=== PATIENT | male | born 1965 | race African-American/Black ===

== ENCOUNTER → 2020-06-20 | Outpatient (CLI) | payer BC ==
[~2020-06-20] MED LIST: AMLODIPINE BESY10 MG PO; ATORVASTATIN CA80 MG PO; BENTYL 10 MG CA10 M1 PO; CRESTOR20 MG PO; FLEXERIL PO; GLIMEPIRIDE4 MG PO; GLUCOPHAGE XR750 MG PO; HYDROCHLOROTH12.5 MG PO; HYDROCODON-ACE1 EA11 PO; KLOR-CON 10 ER10 MEQ PO; LISINOPRIL40 MG PO; OMEGA-3 KRILL1 EACH PO; OMEPRAZOLE 20 M20 M1 PO; PREDNISONE 10 M10 M1 PO; PROPRANOLOL 8080 M1 PO; PROTONIX40 M2 PO; PROVIGIL 200 M200 M1 PO; TOPAMAX50 MG PO; TRIAMTERENE-HC1 EAC3 PO
== END ==
LOC: LAB 11:06
PROVIDERS: ATTEND Surgery
DX: Z01.818 Encounter for other preprocedural examination (principal); Z20.828 Contact with and (suspected) exposure to other viral communicable diseases

== ENCOUNTER 2020-06-21 14:02 | Day surgery (SDC) | payer BC ==
[~2020-06-21] VITALS: Ht 160 cm; Wt 131.5 kg
[~2020-06-21 14:02] MED LIST changes: -FLEXERIL PO; -HYDROCODON-ACE1 EA11 PO
[2020-06-21 14:26] VITALS: BP 158/85
[2020-06-21] MEDS ORDERED: HYDROCODON-ACE1 EA11 PO (15:58)
[2020-06-22] MEDS ORDERED: FLEXERIL PO (15:02)
--- NOTE | 2020-06-24 17:06 | PATH ---
[facility] [address] [place] [address] PATHOLOGY RPT PROCEDURE Name: SCOTTIE MUJICA Room #: DEP [facility] M.R.#: [id number] Admission: 06/21/20 Date of : 67 Discharge: 06/21/20 Report #: [id number] Path Case #: [id number] [facility] Accession Number: [id number] . 01 Material submitted: . artery - RIGHT TEMPORAL ARTERY. Modifiers: right, temporal . 01 Clinical history: . TEMPORAL ARTERY OF THE FOREHEAD . 01 Frozen section diagnosis: . . /QMS . 02 Diagnosis: Artery, right temporal artery, biopsy: - Minimal atherosclerotic changes. - Negative for arteritis. - Adjacent tissue showing fragments of skeletal muscle as well as nerve tissue, in addition to adipose tissue. (IUV:shawn; 06/24/2020) QMS 06/24/2020 1456 Local . 02 Electronically signed: . Rebeka Aguillon MD, Pathologist NPI- [id number] . 01 Gross description: . Received in formalin labeled "Scottie Mujica, right temporal artery" is a segment of matos-brown vascular tissue measuring 1.3 cm in length and 0.3 cm in diameter. The specimen is submitted in toto in cassette A1 for temporal artery sectioning. ([facility]; 06/23/2020) [facility] 06/23/2020 1042 Local . 02 Microscopic: . . . 02 Pathologist provided ICD-10: Z03.89 . 02 CPT . 657023 Specimen Comment: A courtesy copy of this report has been sent to [phone] Specimen Comment: [phone], Specimen Comment: Report sent to ,DR PADILLA / DR FARLEY Performed at: [address] [address] PATHOLOGY RPT PROCEDURE Name: SCOTTIE MUJICA Room #: DEP [facility] Prisca#: [id number] Admission: 06/21/20 Date of : 67 Discharge: 06/21/20 Report #: [id number] Path Case #: [id number] [address], [place], [place] [id number] MD Jim Nava MD Phone: [phone] Performed at: [address], [place] [id number] MD Rebeka Aguillon MD Phone: [phone]
--- NOTE | 2020-06-27 16:09 | O ---
[facility] [place] [address] [place] [address] OPERATIVE REPORT Name: RERE MUJICA Room #: DEP [facility]..#: [id number] Admission: 06/21/20 Attend Phys: Triston Encinas MD Discharge: 06/21/20 Date of : 67 Report #: [id number] THIS REPORT FOR: cc: Sidra Stroud MD NO FAMILY PHYSICIAN or PCP Triston Encinas MD ~ CC: HAY Stroud NO PCP Triston Encinas DATE OF SERVICE: 06/21/2020 PATIENT OF: Dr. Triston Encinas, Dr. Hay Neumann. PREOPERATIVE DIAGNOSIS: Possible temporal arteritis. POSTOPERATIVE DIAGNOSIS: Possible temporal arteritis. PROCEDURE: Right temporal artery biopsy. SURGEON: Triston Encinas MD ANESTHESIA: Local. DESCRIPTION OF PROCEDURE: The patient was brought to the operating room and placed on operative table in the supine position. The right temporal area was prepped and draped in a sterile fashion. Skin and subcutaneous tissue were then infiltrated with 0.5% Marcaine and 1% Xylocaine in a 1:1 mixture. A skin incision was performed over the temporal artery using #15 scalpel blade. Hemostasis obtained using electrocautery. Dissection was carried down through subcutaneous tissue to the artery, which was identified, dissected free and tied proximally and distally with a 3-0 silk tie. Specimen was removed and sent to pathology. Subcutaneous tissue was then reapproximated using simple interrupted 3-0 Vicryl suture and the skin then closed with a running 4-0 subcuticular Vicryl stitch. Wound was then dressed with Dermabond and the patient was taken to recovery room in good condition. Estimated blood loss was approximately 10 mL and the patient tolerated procedure well. All sponge, lap and instrument counts correct x 2. <ELECTRONICALLY SIGNED> By: Triston Encinas MD 06/27/20 1609 1647 1716 Triston Encinas MD /nt
== END 2020-06-21 17:00 | disposition home or self-care (01) ==
LOC: OR 14:02 → TBA 14:04 → OR 14:06
PROVIDERS: ATTEND Surgery
DX: Z03.89 Encounter for observation for other suspected diseases and conditions ruled out (principal); M31.6 Other giant cell arteritis; E11.9 Type 2 diabetes mellitus without complications; I10 Essential (primary) hypertension; K21.00 Gastro-esophageal reflux disease with esophagitis, without bleeding; G47.33 Obstructive sleep apnea (adult) (pediatric); E78.2 Mixed hyperlipidemia; M17.0 Bilateral primary osteoarthritis of knee; Z90.49 Acquired absence of other specified parts of digestive tract; Z98.890 Other specified postprocedural states; Z82.49 Family history of ischemic heart disease and other diseases of the circulatory system; Z79.899 Other long term (current) drug therapy; Z79.84 Long term (current) use of oral hypoglycemic drugs; Z83.3 Family history of diabetes mellitus
CPT/HCPCS: 50010; 50101

== ENCOUNTER 2020-06-22 13:56 | Emergency (ER) | payer BC ==
[~2020-06-22] VITALS: Ht 160 cm; Wt 131.5 kg
[~2020-06-22 13:56] MED LIST changes: +HYDROCODON-ACE1 EA11 PO
[2020-06-22 13:57] VITALS: BP 146/92
[2020-06-22] MEDS ORDERED: FLEXERIL PO (15:02)
== END 2020-06-22 15:44 | disposition home or self-care (01) ==
LOC: ER 13:56
DX: S39.012A Strain of muscle, fascia and tendon of lower back, initial encounter (principal); S80.01XA Contusion of right knee, initial encounter; M51.37 Other intervertebral disc degeneration, lumbosacral region; K21.9 Gastro-esophageal reflux disease without esophagitis; G43.909 Migraine, unspecified, not intractable, without status migrainosus; I10 Essential (primary) hypertension; E78.00 Pure hypercholesterolemia, unspecified; Z90.49 Acquired absence of other specified parts of digestive tract; E11.9 Type 2 diabetes mellitus without complications; Z98.890 Other specified postprocedural states; Z79.899 Other long term (current) drug therapy; W01.0XXA Fall on same level from slipping, tripping and stumbling without subsequent striking against object, initial encounter; Y93.89 Activity, other specified; Y92.89 Other specified places as the place of occurrence of the external cause; Y99.8 Other external cause status